=== PATIENT | male | born 1955 | race Caucasian/White ===

== ENCOUNTER 2016-07-24 23:22 | Emergency (ER) | payer MEDICARE ==
--- NOTE | 2016-07-25 01:18 | ED ---
Head Injury - HPI Summary HPI Summary: 61M w/ PMh of CVA presents with head injury, forehead laceration, and left hand injury s/p falling. He is not suppose to walk much because he is unsteady on his feet. He states he got caught on a rug and feel onto his left hand and forehead. He denies any LOC or vomiting. He is not sure if he is on blood thinners. He denies any headache currently. 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 He denies any chest pain or SOB with fall. His tetanus is up to date. - History Of Current Complaint Chief Complaint: EDLacSutureRecheck Stated Complaint: HEAD LACERATION Time Seen by Provider: 07/25/16 00:18 Pain Intensity: 0 - Allergies/Home Medications Allergies/Adverse Reactions: Allergies Allergy/AdvReac Type Severity Reaction Status Date / Time Sulfa Antibiotics AdvReac Mild Rash Verified 07/24/16 23:27 PMH/Surg Hx/FS Hx/Imm Hx Endocrine/Hematology History: Denies: Hx Anticoagulant Therapy, Hx Diabetes Cardiovascular History: Reports: Hx Coronary Artery Disease - ON MED, Hx Hypertension - CONTROLLED W/ MEDICATION, Other Cardiovascular Problems/ Disorders - CABG 2008, [employer] DR. STOKES Denies: Hx Pacemaker/ICD GI History: Reports: Hx Gastroesophageal Reflux Disease - ON MED History: Reports: Hx Kidney Stones Denies: Hx Renal Disease Musculoskeletal History: Denies: Hx Rheumatoid Arthritis, Hx Osteoporosis Sensory History: Reports: Hx Contacts or Glasses - GLASSES Denies: Hx Hearing Aid Opthamlomology History: Reports: Hx Contacts or Glasses - GLASSES Psychiatric History: Denies: Hx Panic Disorder - Surgical History Surgery Procedure, Year, and Place: 2008-CABG; Lt [facility] - 2000; LITHOTRIPSY - 2006; HAND - TENDON REPAIRED -02/22/12 Hx Anesthesia Reactions: No - Immunization History Date of Tetanus Vaccine: 2014 Infectious Disease History: No Infectious Disease History: Denies: Hx Clostridium Difficile, Hx Hepatitis, Hx Human Immunodeficiency Virus (HIV), Hx of Known/Suspected MRSA, Hx Shingles, Hx Tuberculosis, Hx Known/ Suspected VRE, Hx Known/Suspected VRSA, History Other Infectious Disease, Traveled Outside the [place] in Last 30 Days - Family History Known Family History: Positive: Cardiac Disease - Social History Alcohol Use: None Substance Use Type: Reports: None Smoking Status (MU): Never Smoked Tobacco Review of Systems Negative: Fever Negative: Chest Pain Negative: Shortness Of Breath Negative: Vomiting Positive: Myalgia - left hand pain Positive: Other - forehead laceration Negative: Headache All Other Systems Reviewed And Are Negative: Yes Physical Exam Triage Information Reviewed: Yes Vital Signs On Initial Exam: Initial Vitals Temp Pulse Resp BP Pulse Ox 98.8 F 79 18 194/74 98 07/24/16 23:24 07/24/16 23:24 07/24/16 23:24 07/24/16 23:24 07/24/16 23:24 Vital Signs Reviewed: Yes Appearance: Positive: Well-Appearing Skin: Positive: Warm, Dry, Other - 5 cm length and 1 cm width of forhead laceration near right eyebrow, bruising present on right cheek and abrasion noted to left knuckle of middle finger Head/Face: Positive: Normal Head/Face Inspection, Other - no step off, racoon eyes, leonard sign Eyes: Positive: Normal, EOMI, YASEMIN, Conjunctiva Clear ENT: Positive: Normal ENT inspection, Pharynx normal, TMs normal Neck: Positive: Supple, Nontender Respiratory/Lung Sounds: Positive: Clear to Auscultation, Breath Sounds Present Cardiovascular: Positive: Normal, RRR Abdomen Description: Positive: Nontender, Soft Musculoskeletal: Positive: Strength/ROM Intact - of upper and lower extremities and nontender, Limited @ - left hand which is baseline, Other - good pulses, nontender extremities Neurological: Positive: Sensory/Motor Intact, Alert, Oriented to Person Place, Time, CN Intact II-III - has loss of some peripheral vision which is baseline - [place] Coma Scale Best Eye Response: 4 - Spontaneous Best Motor Response: 6 - Obeys Commands Best Verbal Response: 5 - Oriented Coma Scale Total: 15 Procedures - Laceration/Wound Repair 1 Location: head Description: Linear Anesthesia: Local, 1.0%, Epi Length, Depth and Shape: 5 cm length by 1 cm width Betadine Prep?: No Irrigated w/ Saline (ccs): 100 Laceration/Wound Explored: clean Closure: Multilayer Suture Type: Prolene - 6-0, Chromic - 6-0 Number of Sutures: 8 Layer Closure?: Yes - 7 superficial and one deep Diagnostics - Vital Signs Vital Signs Temp Pulse Resp BP Pulse Ox 07/25/16 00:17 78 94 07/25/16 00:16 142/77 07/24/16 23:24 98.8 F 79 18 194/74 98 - Laboratory Lab Statement: Any lab studies that have been ordered have been reviewed, and results considered in the medical decision making process. - Radiology hand Xray Interpretation: No Acute Changes Radiology Interpretation Completed By: ED Physician - CT head CT Interpretation: No Acute Changes - no hemmorrhage, mass, old right occipital and fontoparietal infarct CT Interpretation Completed By: Radiologist facial CT Interpretation: No Acute Changes CT Interpretation Completed By: Radiologist Head Injury Course/Dx Course Of Treatment: 61M presents with right forehead laceration and head injury s/p falling. mechanical fall. normal neuro exam at his baseline due to previous CVA. CT head and face normal. xray hand normal, has abrasion present there that cleaned, laceration went through muscle at one part so placed one deep absorbable sutures and 7 superficial that told to need to remove in 5 days , patient understands and agrees with plan - Diagnoses Differential Diagnosis/HQI/PQRI: Contusion, Intracranial Bleed, Laceration, Orbital Fracture Provider Diagnoses: Laceration of forehead, Head injury, Injury of left hand Discharge - Discharge Plan Condition: Good Disposition: HOME Patient Education Materials: Care For Your Stitches (ED) Referrals: Yolanda Bai MD [Primary Care Provider] - Additional Instructions: Keep area clean and dry for 48 hours Take Tylenol for pain every 6 hours as needed Return to ED or primary for suture removal in 5 days Return to ED if develop signs of infection such as fever, spreading redness, or pus formation, worsening headache, or any new or worsening symptoms Images - Images Head: 1 - forehead laceration
[2016-07-25 02:14] VITALS: BP 142/72
--- NOTE | 2016-07-25 07:46 | RAD ---
INDICATION: Head injury. COMPARISON: Comparison is made with a prior CT of the brain from November 21, 2012. TECHNIQUE: Contiguous axial sections of the brain were obtained from the skull base to the vertex without contrast. FINDINGS: The ventricles, cisterns and sulci are enlarged consistent with diffuse atrophy which is out of proportion to the patient's age although appears similar to the prior study. There are small a moderate size areas of encephalomalacia present in the right frontal and occipital lobes consistent with old infarcts which appear unchanged. No other focal abnormality or mass effect is seen. There is no evidence for hemorrhage. There is focal soft tissue swelling and air in the scalp adjacent to the right frontal bone consistent with a laceration contusion injury. No fracture is seen. The visualized portion of the paranasal sinuses and mastoid air cells appear clear with the exception of a small 7 mm mucous retention cyst or polyp within the right maxillary sinus. IMPRESSION: 1. NO EVIDENCE FOR ACUTE INTRACRANIAL ABNORMALITY. 2. SCALP LACERATION INJURY ANTERIOR TO THE RIGHT FRONTAL BONE. 3. ATROPHY. 4. OLD INFARCTS.
--- NOTE | 2016-07-25 07:50 | RAD ---
INDICATION: Left hand injury. TECHNIQUE: 2 views of the left hand were obtained. FINDINGS: There is deformity of the hand. There is focal soft tissue swelling dorsal to the metacarpal bones. No fracture is seen. Joint spaces appear maintained. IMPRESSION: SOFT TISSUE SWELLING, NO FRACTURE IS SEEN.
--- NOTE | 2016-07-25 07:56 | RAD ---
INDICATION: Facial trauma. COMPARISON: There are no prior studies available for comparison. TECHNIQUE: Contiguous axial sections of the axial images of the facial bones were obtained and reconstructed in the coronal and sagittal planes. FINDINGS: There is air and focal soft tissue swelling anterior to the right frontal bone. No adjacent fracture is seen. The arora of the orbits and maxillary sinuses appear intact. The zygomatic arches appear intact. There is no evidence for a fracture of the mandible. The nasal bones appear intact. There is moderate deviation of the nasal septum toward the left side. The pterygoid plates appear intact. There is a 7 mm nodule in the posterior aspect of the right maxillary sinus most consistent with a mucous retention cyst or polyp. The paranasal sinuses and mastoid air cells otherwise appear clear. IMPRESSION: SOFT TISSUE LACERATION ANTERIOR TO THE RIGHT FRONTAL BONE, NO EVIDENCE FOR FRACTURE OF THE FACIAL BONES.
== END 2016-07-25 02:16 | disposition home or self-care (01) ==
LOC: ED 23:22
DX: S01.81XA Laceration without foreign body of other part of head, initial encounter (principal); S69.92XA Unspecified injury of left wrist, hand and finger(s), initial encounter; M89.8X9 Other specified disorders of bone, unspecified site; M79.642 Pain in left hand; W19.XXXA Unspecified fall, initial encounter; Y93.9 Activity, unspecified; Y92.9 Unspecified place or not applicable
CPT/HCPCS: 12013; 70450; 70486; 99283

== ENCOUNTER 2016-08-10 14:33 | Emergency (ER) | payer MEDICARE ==
[2016-08-10 14:55] VITALS: BP 137/75
--- NOTE | 2016-08-10 15:24 | UC ---
HPI Wound/Suture Re-check - HPI Summary HPI Summary: SEVEN SUTURES PLACED ON 08/05/16 IN [facility] ED, FELL ON HEAD. NO COMPLICATIONS WITH HEAD TRAUMA OR LACERATION. - History Of Current Complaint Chief Complaint: UCSkin Stated Complaint: STITCHES REMOVAL Time Seen by Provider: 08/10/16 15:05 Hx Obtained From: Patient Onset/Duration: Sudden Onset Pain Intensity: 0 Pain Scale Used: 0-10 Numeric - Allergies/Home Medications Allergies/Adverse Reactions: Allergies Allergy/AdvReac Type Severity Reaction Status Date / Time Sulfa Antibiotics AdvReac Mild Rash Verified 08/10/16 14:55 PMH/Surg Hx/FS Hx/Imm Hx Previously Healthy: Yes Endocrine History Of: Denies: Diabetes, Thyroid Disease Cardiovascular History Of: Reports: Cardiac Disorders - cabbage, Hypertension - CONTROLLED W/ MEDICATION Denies: Pacemaker/ICD Respiratory History Of: Denies: COPD, Asthma GI/ History Of: Reports: Kidney Stones Denies: Ulcer, Renal Disease Neurological History Of: Reports: CVA - 3 YEARS AGO Other History Of: Negative For: Anticoagulant Therapy - Surgical History Surgical History: Yes Surgery Procedure, Year, and Place: 2009-CABG; Lt [facility] - 2000; LITHOTRIPSY - 2006; HAND - TENDON REPAIRED -02/22/12 - Family History Known Family History: Positive: Cardiac Disease - Social History Occupation: Disabled Lives: With Family Alcohol Use: None Substance Use Type: None Smoking Status (MU): Never Smoked Tobacco - Immunization History Most Recent Influenza Vaccination: fall 2105 Most Recent Tetanus Shot: UPDATED 04/27/15 Most Recent Pneumonia Vaccination: denies Review of Systems Constitutional: Negative Skin: Negative Eyes: Negative ENT: Negative Respiratory: Negative Cardiovascular: Negative Gastrointestinal: Negative Genitourinary: Negative Motor: Negative Neurovascular: Negative Musculoskeletal: Negative Neurological: Negative Psychological: Negative All Other Systems Reviewed And Are Negative: Yes Physical Exam Triage Information Reviewed: Yes Appearance: Well-Appearing, No Pain Distress, Well-Nourished Vital Signs: Initial Vital Signs Temp 98.8 F 08/10/16 14:49 Pulse 64 08/10/16 14:49 Resp 18 08/10/16 14:49 BP 137/75 08/10/16 14:49 Pulse Ox 98 08/10/16 14:49 Vital Signs Reviewed: Yes Eye Exam: Normal ENT Exam: Normal ENT: Positive: Normal ENT inspection, Hearing grossly normal, Pharynx normal, TMs normal Dental Exam: Normal Neck exam: Normal Neck: Positive: Supple, Nontender, No Lymphadenopathy Respiratory Exam: Normal Respiratory: Positive: Chest non-tender, Lungs clear, Normal breath sounds, No respiratory distress, No accessory muscle use Cardiovascular Exam: Normal Cardiovascular: Positive: RRR, No Murmur, Pulses Normal, Brisk Capillary Refill Abdominal Exam: Normal Abdomen Description: Positive: Nontender, No Organomegaly Musculoskeletal: Positive: Strength Limited @ - LEFT SIDE LIMITIATIONS = NORMAL FOR PATIENT, ROM Limited @ - LEFT SIDE LIMITIATIONS = NORMAL FOR PATIENT Neurological Exam: Normal - LEFT SIDE LIMITIATIONS = NORMAL FOR PATIENT Psychological Exam: Normal Psychological: Positive: Normal Response To Family Skin Exam: Other - HEALING WOUND RIGHT FOREHEAD; SEVEN SUTURES REMOVED Course/Dx - Differential Dx - Laceration/Wound Differential Diagnoses: Healing Wound, Suture Removal Provider Diagnoses: HEALING WOUND (#7) SUTURES REMOVED Discharge - Discharge Plan Condition: Stable Disposition: HOME Patient Education Materials: Stitches Removal (ED) Referrals: Yolanda Bai MD [Primary Care Provider] -
== END 2016-08-10 15:18 | disposition home or self-care (01) ==
LOC: UCEAST 14:33
DX: Z48.02 Encounter for removal of sutures (principal); I10 Essential (primary) hypertension; Z88.2 Allergy status to sulfonamides; Z87.442 Personal history of urinary calculi; Z86.73 Personal history of transient ischemic attack (TIA), and cerebral infarction without residual deficits
CPT/HCPCS: 99211; G0463

== ENCOUNTER 2017-03-12 12:38 | Day surgery (SDC) | payer MEDICARE ==
[~2017-03-12 12:38] MED LIST: Buffered Lidocaine 0.9% SYRIN* 5 ML/SYR SYRINGE INTRADERM ONE; Sodium Citrate/Citric Acid* 15 ML UDC PO ONE
[2017-03-12] MEDS ORDERED: Sodium Citrate/Citric Acid* 15 ML UDC ONE (12:51)
[2017-03-12] MEDS ORDERED: ceFAZolin 2 GM PREMIX (*) 2 GM/50 ML BAG IVPB ONE (12:51)
[2017-03-12] MEDS ORDERED: Buffered Lidocaine 0.9% SYRIN* 5 ML/SYR SYRINGE ONE (12:51)
[2017-03-12 13:17] LABS: Hematocrit 46 % (42-52); Hemoglobin 16.1 g/dl (14.0-18.0); Mean Corpuscular HGB Conc 35 g/dl (31-36); Mean Corpuscular Hemoglobin 32 pg (27-31); Mean Corpuscular Volume 92 fL (80-94); Mean Platelet Volume 8 um3 (7.4-10.4); Red Blood Count 4.96 10^6/ul (4.0-5.4); Red Cell Distribution Width 13 % (10.5-15); White Blood Count 7.3 10^3/ul (3.5-10.8)
[2017-03-12] MEDS ORDERED: Lidocaine 2% PF* 10 ML AMP ONE ×2 (14:47→15:19)
[2017-03-12] MEDS ORDERED: fentaNYL* 50 MCG/ML 2 ML VIAL (100 MCG VIAL) ONE (14:59)
[2017-03-12] MEDS ORDERED: Midazolam* 1 MG/ML 5 ML VIAL (5 MG) ONE (15:00)
[2017-03-12] MEDS ORDERED: Propofol* 10 MG/ML 20 ML BTL IV PUSH ONE (15:48)
[2017-03-12 16:46] VITALS: BP 133/81
--- NOTE | 2017-03-13 13:23 | OP ---
OPERATIVE REPORT: DATE OF OPERATION: 03/12/17 - SDS DATE OF : 51 ATTENDING SURGEON: Imer Vann MD BREAKDOWN PERSON: Smiley Ren PA-C. ANESTHESIOLOGIST: Kayden Long DO ANESTHESIA: MAC. 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 OPERATIVE PROCEDURE: Left 1st metatarsophalangeal joint fusion and proximal interphalangeal resection arthroplasty. DESCRIPTION OF PROCEDURE: The patient was taken to the operating room where a longitudinal incision was made over the 1st MTP joint. The cartilage of the MTP joint was removed with a small power bur and then we pinned the joint in neutral position using an oblique 32 mm threaded cannulated screw. Dorsally, we fixed the fusion with a neutralization plate. This was a rigid wide plate of the with a combination of locking and nonlocking screws. X-ray intraoperatively showed satisfactory compression and alignment of the 1st MTP joint. Then, we made a transverse elliptical incision at the PIP joint removing the extensor tendon and the collateral ligaments. We removed the bone surfaces from the PIP joint and then pinned in a neutral position with a longitudinal 0.062 C wire. We closed dorsally the interrupted nylon sutures. The wound over the 1st MTP joint was closed with 3-0 Vicryl and 3-0 nylon and a compression dressing applied. [id number] #: [id number] MTDD
== END 2017-03-12 17:00 | disposition home or self-care (01) ==
LOC: OR 12:38
PROVIDERS: ATTEND Orthopaedic Surgery
DX: M20.12 Hallux valgus (acquired), left foot (principal); M20.42 Other hammer toe(s) (acquired), left foot; Z86.73 Personal history of transient ischemic attack (TIA), and cerebral infarction without residual deficits; I69.354 Hemiplegia and hemiparesis following cerebral infarction affecting left non-dominant side; I25.10 Atherosclerotic heart disease of native coronary artery without angina pectoris; Z95.1 Presence of aortocoronary bypass graft; E78.00 Pure hypercholesterolemia, unspecified
CPT/HCPCS: 36415; 85025; A9270-GY; C1713; C1776; J0690; J2001; J2250; J2704; J3010

== ENCOUNTER 2017-03-13 01:07 | Emergency (ER) | payer MEDICARE ==
[2017-03-13] MEDS ORDERED: HYDROmorphone INJ* 2 MG/ML CARPUJECT SYRINGE IM ONE (02:12)
[2017-03-13] MEDS ORDERED: HYDROmorphone INJ* 2 MG/ML CARPUJECT SYRINGE ONE (02:19)
--- NOTE | 2017-03-13 02:55 | ED ---
Michael Tafoya Thomas, scribed for Zuhair Trujillo on 03/13/17 at 0149 . Lower Extremity - HPI Summary HPI Summary: The pt is a 61 y/o M presenting to the ED c/o left foot pain that began yesterday at 23:00 s/p a surgery that was performed yesterday at 14:30. The surgery was performed by Dr. Vann at [facility] [place]. The pain is constant. The pain is rated 6/10. The pain is aggravated by touch and is alleviated by nothing. 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 The patient denies SOB and CP. The patient is accompanied by his . - History of Current Complaint Chief Complaint: EDExtremityLower Stated Complaint: POST SURG L FOOT PAIN Time Seen by Provider: 03/13/17 01:18 Hx Obtained From: Patient, Family/Supplier Specialist - is present Mechanism Of Injury: Other - Surgery yesterday Severity Currently: Moderate Pain Intensity: 6 Pain Scale Used: 0-10 Numeric Timing: Constant Location: Is Discrete @ - L foot Associated Signs And Symptoms: Negative: Other - NEGATIVE: CP, SOB Aggravating Factor(s): Other - Touch Alleviating Factor(s): Nothing - Allergies/Home Medications Allergies/Adverse Reactions: Allergies Allergy/AdvReac Type Severity Reaction Status Date / Time No Known Allergies Allergy Verified 03/12/17 13:01 PMH/Surg Hx/FS Hx/Imm Hx Previously Healthy: No Endocrine/Hematology History: Denies: Hx Anticoagulant Therapy, Hx Diabetes, Hx Thyroid Disease Cardiovascular History: Reports: Hx Coronary Artery Disease - s/p CABG 2008, Hx Hypertension - CONTROLLED W/ MEDICATION, Other Cardiovascular Problems/ Disorders - CABG 2008, ANIMATED [employer] DR. STOKES Denies: Hx Pacemaker/ICD Respiratory History: Denies: Hx Asthma, Hx Chronic Obstructive Pulmonary Disease (COPD) GI History: Reports: Hx Gastroesophageal Reflux Disease - hx of resolved with weight loss and exercise Denies: Hx Ulcer History: Reports: Hx Kidney Stones - in the past x4, last time 3 years ago, Other Problems/Disorders - enlarged prostate-on meds Denies: Hx Renal Disease Musculoskeletal History: Denies: Hx Rheumatoid Arthritis, Hx Osteoporosis Sensory History: Reports: Hx Cataracts - small, Hx Contacts or Glasses - GLASSES distance Denies: Hx Hearing Aid Opthamlomology History: Reports: Hx Cataracts - small, Hx Contacts or Glasses - GLASSES distance Psychiatric History: Denies: Hx Panic Disorder - Cancer History Hx Chemotherapy: No - Surgical History Surgery Procedure, Year, and Place: 2009-CABG; Lt [facility] - 2000; LITHOTRIPSY - 2006; HAND - TENDON REPAIRED -02/22/12. Left foot surgery 03/13/17 Hx Anesthesia Reactions: No - Immunization History Date of Tetanus Vaccine: 2014 Infectious Disease History: Yes Infectious Disease History: Denies: Hx Clostridium Difficile, Hx Hepatitis, Hx Human Immunodeficiency Virus (HIV), Hx of Known/Suspected MRSA, Hx Shingles, Hx Tuberculosis, Hx Known/ Suspected VRE, Hx Known/Suspected VRSA, History Other Infectious Disease, Traveled Outside the [place] in Last 30 Days - Family History Known Family History: Positive: Cardiac Disease - Social History Alcohol Use: None Hx Substance Use: No Substance Use Type: Reports: None Hx Tobacco Use: No Smoking Status (MU): Never Smoked Tobacco Review of Systems Negative: Fever Negative: Chest Pain Negative: Shortness Of Breath Positive: Other - Left foot pain All Other Systems Reviewed And Are Negative: Yes Physical Exam - Summary Physical Exam Summary: Appearance: Well appearing, no pain distress Skin: warm, dry, reflects adequate perfusion Head/face: normal Eyes: EOMI, YASEMIN ENT: normal Neck: supple, nontender Respiratory: CTA, breath sounds present Cardiovascular: RRR, pulses symmetrical Abdomen: nontender, soft Bowel: present Musculoskeletal: normal, strength/ROM intact Neuro: normal, sensory motor intact, A&Ox3 Extremites: There is a dressing applied to the left foot. When I remove the dressing, there is no active bleeding or discoloration of the foot. Pins are present and there are postoperative changes. Neurovascular is intact. Triage Information Reviewed: Yes Vital Signs On Initial Exam: Initial Vitals Temp Pulse Resp BP Pulse Ox 98.0 F 65 16 137/77 96 03/13/17 01:15 03/13/17 01:15 03/13/17 01:15 03/13/17 01:15 03/13/17 01:15 Vital Signs Reviewed: Yes - [place] Coma Scale Coma Scale Total: 15 Diagnostics - Vital Signs Vital Signs Temp Pulse Resp BP Pulse Ox 03/13/17 01:15 98.0 F 65 16 137/77 96 - Laboratory Lab Statement: Any lab studies that have been ordered have been reviewed, and results considered in the medical decision making process. Lower Extremity Course/Dx - Course Assessment/Plan: The pt is a 61 y/o M c/o left foot pain that began yesterday s/ p a surgery that was performed yesterday by Dr. Vann. I spoke with Dr. Reyes, who advises I remove the dressing on the left foot. When I remove the dressing, there is no active bleeding or discoloration of the foot. Pins are present and there are postoperative changes. Neurovascular is intact. We re-wrapped the foot and will give the patient Dilaudid. He will be discharged once his pain is under control. - Diagnoses Provider Diagnoses: Postoperative pain, Status post foot surgery - Physician Notifications Discussed Care Of Patient With: Laura Reyes Time Discussed With Above Provider: 01:40 Instructed by Provider To: Other - I spoke with Dr. Reyes, who advises that I remove the dressing and inspect the foot. If there are no concerning findings, she recommends I re-wrap the foot, give the patient Dilaudid, and discharge him once his pain is under control. Discharge - Discharge Plan Condition: Stable Disposition: HOME Patient Education Materials: Pain Management After Surgery (GEN) Referrals: Yolanda Bai MD [Primary Care Provider] - 3 Days Additional Instructions: Follow up with your primary care provider in three days. Return to the emergency room for any new or worsening symptoms. The documentation as recorded by the Michael nunez Thomas accurately reflects the service I personally performed and the decisions made by me, Zuhair Trujillo.
[2017-03-13 03:05] VITALS: BP 141/75
== END 2017-03-13 03:04 | disposition home or self-care (01) ==
LOC: ED 01:07
DX: G89.18 Other acute postprocedural pain (principal); M79.672 Pain in left foot
CPT/HCPCS: 96372; 99282; J1170

== ENCOUNTER 2017-05-30 23:55 | Emergency (ER) | payer MEDICARE ==
--- OUTSIDE RECORDS SUMMARY | 2017-05-31 00:16 | XMS REPORT ---
:1955 External Reference #:[id number] Author Organization [facility] Address [address] [address] Phone [phone] Care Team Providers Name Role Phone Yolanda Bai MD Primary Care Physician Unavailable Payers Type Date Identification Numbers Payment Provider Subscriber Health Maintenance Effective: Policy Number: Medicare Blue Zachary Patel (O) 06/21/2012 [id number] o Group Number: [id number] [address] [address] PayID: [id number] [place] [address] Medigap Part B Expires: 05/20/2014 Policy Number: [id number] Medicare Zachary Snow PayID: [id number] [address] [place] [address] Problems Date Description Provider Status Onset: 03/17/2013 Mixed hyperlipidemia Simin Majano M.D. Active Onset: 03/17/2013 Arteriosclerosis of autologous vein Simin Majano M.D. Active coronary artery bypass graft Onset: 03/17/2013 Benign essential hypertension Simin Majano M.D. Active Onset: 03/17/2013 Obesity Smiin Majano M.D. Active Onset: 03/18/2014 History of fall Simin Majano M.D. Active Onset: 04/13/2014 Ischemic stroke Apurva Caballero M.D. Active Note: In setting of cardiac catheterization in 2008 Onset: 04/13/2014 Spastic gait Apurva Caballero M.D. Active Onset: 04/13/2014 Abnormal vision Apurva Caballero M.D. Active Note: secondary to [employer] ischemia Onset: 02/24/2015 Arteriosclerosis of coronary artery Simin Majano M.D. Active bypass graft Onset: 02/24/2015 Hyperlipidemia Simin Majano M.D. Active Onset: 02/24/2015 Essential hypertension Simin Majano M.D. 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 hours as needed with food Oxycodone HCL Active Tablets 5mg 30tabs 1-2 tabs M20.12 Imer French by ernesto Vann, every 4-6 M.D. hours as needed Lisinopril Active Tablets 10mg 30tabs 1 by mouth Simin 017 every day Alejandro Majano Left Afo Active I69.998 Apurva Brace For 015 Cowdery, Foot Drop M.D. Tizanidine Active Capsules 4mg 60caps take 1 Apurva HCL 015 capsule by Ada mouth two M.D. times daily Orthotic For Active Please I69.998 Apurva Left Foot 014 make Cowdery, Drop After orthotic M.D. Stroke for foot drop. Patient had had falls in setting of foot drop and vision loss. Crestor Active Tablets 20mg 90tabs 1 by mouth Simin 012 every day Alejandro Majano Multivital Active Tablets once daily Unknown 000 Fish Oil Active Capsules 1000mg 1 po qd Unknown 000 Bupropion HCL Active Tablets ER 300mg 1 po qd Unknown XL 000 24HR Metoprolol Active Tablets 25mg 1 po qam 1 Unknown Tartrate 000 po qpm Vitamin D Active 2 tab po Unknown 000 daily Coq-10 Active Capsules 10mg 2 times a Unknown 000 week Magnesium Active Capsules 400mg 1 by mouth Unknown 000 every day Aspirin Active Tablets 325mg take 1 by Unknown 000 mouth once a day Dutasteride-T Active Capsules 0.5-0.4mg 1 daily Juanita, amsulosin HCL 000 MD Stevie Topamax Hx Tablets 25mg 120tab 1 po qhs I69.998 Endy [place] 015 - s for 1 wk Gagan then 2 qhs M.DArmand 017 for 1 wk then 3 qhs for 1 wk then 4 qhs Lisinopril Hx Tablets 5mg 60tabs 2 by mouth Simin 012 - every day Armstrong, M.D. 017 Tizanidine Hx Capsules 2mg 120cap 2 capsules Apurva HCL 012 - s twice a Cowdery, day M.D. 015 Metoprolol Hx Unknown 000 - 013 Wellbutrin Hx Unknown 000 - 013 Omeprazole Hx Capsules 20mg 1 po qd Unknown 000 - DR 016 Vitamin E Hx Capsules 1 po qd Unknown 000 - 017 Vitamin C Hx Capsules 1000 1 po qd Unknown 000 - 017 Aspirin Hx Tablets 81mg 1 po qd Unknown 000 - 017 Medications Administered in Office Medication Date Status Form Strength Qnty SIG Indications Ordering Provider Inj, Administered Injection Simin Regadenoson, 013 Armstrong, 0.1 MG M.D. Technetium TC Administered Injection Simin 99M 013 Melecio, Tetrofosmin, M.D. Per Unit Dose Up To 40 Millicuries Vital Signs Date Vital Result Comment 05/24/2017 Height 71.5 inches 5'11.50" Weight 206.00 lb BP Systolic 128 mmHg BP Diastolic 74 mmHg Respiratory Rate 14 /min Pain Level 2 BMI (Body Mass Index) 28.3 kg/m2 04/26/2017 Height 71.5 inches 5'11.50" Weight 206.00 lb Respiratory Rate 14 /min Pain Level 2 BMI (Body Mass Index) 28.3 kg/m2 04/04/2017 Height 71.5 inches 5'11.50" Weight 206.00 lb Heart Rate 56 /min BP Systolic 118 mmHg BP Diastolic 72 mmHg Body Temperature 95.5 F Pain Level 2 BMI (Body Mass Index) 28.3 kg/m2 03/27/2017 Height 71.5 inches 5'11.50" Weight 206.00 lb with shoes Heart Rate 60 /min BP Systolic Sitting 124 mmHg Rue reg cuff BP Diastolic Sitting 80 mmHg Rue reg cuff BP Systolic Standing 140 mmHg Rue reg cuff BP Diastolic Standing 90 mmHg Rue reg cuff Respiratory Rate 16 /min BMI (Body Mass Index) 28.3 kg/m2 Ejection Fraction 50-55% 02/26/2013-echo 03/23/2017 Height 71.5 inches 5'11.50" Weight 205.00 lb BP Systolic 110 mmHg BP Diastolic 60 mmHg Respiratory Rate 14 /min Body Temperature 98.6 F Pain Level 3 BMI (Body Mass Index) 28.2 kg/m2 03/08/2017 Height 71.5 inches 5'11.50" Weight 205.00 lb Heart Rate 60 /min BP Systolic 105 mmHg BP Diastolic 80 mmHg Body Temperature 97.8 F Pain Level 6 BMI (Body Mass Index) 28.2 kg/m2 10/25/2016 Height 71.5 inches 5'11.50" Weight 202.00 lb Heart Rate 68 /min BP Systolic Sitting 110 mmHg BP Diastolic Sitting 70 mmHg Respiratory Rate 14 /min BMI (Body Mass Index) 27.8 kg/m2 03/17/2016 Height 71.5 inches 5'11.50" Weight 201.00 lb with shoes Heart Rate 64 /min BP Systolic Sitting 132 mmHg R arm reg cuff BP Diastolic Sitting 70 mmHg R arm reg cuff BP Systolic Standing 140 mmHg BP Diastolic Standing 74 mmHg Respiratory Rate 18 /min BMI (Body Mass Index) 27.6 kg/m2 Ejection Fraction 50-55% 03/0209/10/2015 Height 71.5 inches 5'11.50" Weight 204.00 lb with shoes Heart Rate 62 /min BP Systolic Sitting 134 mmHg LA lrg cuff BP Diastolic Sitting 76 mmHg LA lrg cuff BP Systolic Standing 136 mmHg LA lrg cuff BP Diastolic Standing 78 mmHg LA lrg cuff Respiratory Rate 15 /min BMI (Body Mass Index) 28.1 kg/m2 Ejection Fraction 50-55% 02/26/13 04/26/2015 Height 71.5 inches 5'11.50" Weight 201.00 lb Heart Rate 60 /min BP Systolic Sitting 136 mmHg BP Diastolic Sitting 74 mmHg Respiratory Rate 16 /min BMI (Body Mass Index) 27.6 kg/m2 02/24/2015 Height 71.5 inches 5'11.50" Weight 201.56 lb with shoes Heart Rate 60 /min BP Systolic Sitting 138 mmHg Ra reg cuff BP Diastolic Sitting 90 mmHg Ra reg cuff BP Systolic Standing 132 mmHg Ra reg cuff BP Diastolic Standing 90 mmHg Ra reg cuff Respiratory Rate 16 /min BMI (Body Mass Index) 27.7 kg/m2 Ejection Fraction 50-55% date 02/26/13 ECHO 09/14/2014 Height 71.5 inches 5'11.50" Weight 209.00 lb Heart Rate 56 /min BP Systolic Sitting 134 mmHg BP Diastolic Sitting 82 mmHg Respiratory Rate 16 /min BMI (Body Mass Index) 28.7 kg/m2 06/24/2014 Height 71.5 inches 5'11.50" Weight 202.00 lb Heart Rate 58 /min BP Systolic 134 mmHg BP Diastolic 71 mmHg BMI (Body Mass Index) 27.8 kg/m2 04/13/2014 Height 71.5 inches 5'11.50" Weight 207.25 lb Heart Rate 68 /min BP Systolic Sitting 122 mmHg BP Diastolic Sitting 66 mmHg Respiratory Rate 16 /min BMI (Body Mass Index) 28.5 kg/m2 03/18/2014 Height 71.5 inches 5'11.50" Weight 206.00 lb with shoes Heart Rate 62 /min BP Systolic Sitting 136 mmHg LA, reg cuff BP Diastolic Sitting 94 mmHg LA, reg cuff BP Systolic Standing 136 mmHg LA BP Diastolic Standing 90 mmHg LA Respiratory Rate 16 /min BMI (Body Mass Index) 28.3 kg/m2 12/01/2013 Height 71.5 inches 5'11.50" Weight 200.00 lb Heart Rate 60 /min BP Systolic Sitting 120 mmHg BP Diastolic Sitting 76 mmHg Respiratory Rate 16 /min BMI (Body Mass Index) 27.5 kg/m2 06/04/2013 Heart Rate 60 /min BP Systolic Sitting 128 mmHg BP Diastolic Sitting 80 mmHg Respiratory Rate 16 /min 03/17/2013 Height 71.5 inches 5'11.50" Weight 207.00 lb down 7 lbs Heart Rate 86 /min BP Systolic Sitting 130 mmHg Ra reg cuff BP Diastolic Sitting 82 mmHg Ra reg cuff BP Systolic Standing 118 mmHg Ra BP Diastolic Standing 80 mmHg Ra Respiratory Rate 16 /min BMI (Body Mass Index) 28.5 kg/m2 11/18/2012 Height 72 inches 6'0" Weight 204.00 lb Heart Rate 60 /min BP Systolic 120 mmHg BP Diastolic 78 mmHg Respiratory Rate 10 /min BMI (Body Mass Index) 27.7 kg/m2 07/18/2012 Heart Rate 69 /min BP Systolic 118 mmHg BP Diastolic 80 mmHg Respiratory Rate 16 /min Results Test Date Test Result H/L Range Note CBC Auto Diff 03/12/2017 White Blood Count 7.3 10^3/uL 3.5-10.8 Red Blood Count 4.96 10^6/uL 4.0-5.4 Hemoglobin 16.1 g/dL 14.0-18.0 Hematocrit 46 % 42-52 Mean Corpuscular Volume 92 fL 80-94 Mean Corpuscular Hemoglobin 32 pg High 27-31 Mean Corpuscular HGB Conc 35 g/dL 31-36 Red Cell Distribution Width 13 % 10.5-15 Platelet Count 177 10^3/uL 150-450 Mean Platelet Volume 8 um3 7.4-10.4 Abs Neutrophils 5.1 10^3/uL 1.5-7.7 Abs Lymphocytes 1.3 10^3/uL 1.0-4.8 Abs Monocytes 0.6 10^3/uL 0-0.8 Abs Eosinophils 0.2 10^3/uL 0-0.6 Abs Basophils 0 10^3/uL 0-0.2 Abs Nucleated RBC 0 10^3/uL Granulocyte % 70.9 % 38-83 Lymphocyte % 17.5 % Low 25-47 Monocyte % 7.7 % 1-9 Eosinophil % 3.3 % 0-6 Basophil % 0.6 % 0-2 Nucleated Red Blood Cells % 0 Basic Metabolic Panel 05/27/2014 Sodium 139 mmol/L 133-145 Potassium 4.5 mmol/L 3.5-5.0 Chloride 105 mmol/L 101-111 Co2 Carbon Dioxide 30 mmol/L 22-32 Anion Gap 4 mmol/L 2-11 Glucose 89 mg/dL 70-100 Blood Urea Nitrogen 19 mg/dL 6-24 Creatinine 1.25 mg/dL High 0.67-1.17 BUN/Creatinine Ratio 15.2 8-20 Calcium 9.2 mg/dL 8.6-10.3 Egfr Non- 58.7 >60 Egfr 75.5 >60 1 CBC No Diff 05/27/2014 White Blood Count 7.1 10^3/uL 4.8-10.8 Red Blood Count 5.01 10^6/uL 4.0-5.4 Hemoglobin 15.9 g/dL 14.0-18.0 Hematocrit 47 % 42-52 Mean Corpuscular Volume 94 fL 80-94 Mean Corpuscular Hemoglobin 32 pg High 27-31 Mean Corpuscular HGB Conc 34 g/dL 31-36 Red Cell Distribution Width 13 % 10.5-15 Platelet Count 180 10^3/uL 150-450 Mean Platelet Volume 9 um3 7.4-10.4 Laboratory test finding 03/17/2014 Creatine Kinase 61 U/L 10-223 Lipid Profile (Trig/Chol/HDL) 03/17/2014 Triglycerides 89 mg/dL 2 Cholesterol 121 mg/dL 3 HDL Cholesterol 46.2 mg/dL 4 LDL Cholesterol 57 mg/dL 5 1 Because ethnic data is not always readily available, this report includes an eGFR for both -Americans and non- Americans. The National Kidney Disease Education Program (NKDEP) does not endorse the use of the MDRD equation for patients that are not between the ages of 18 and 70, are , have extremes of body size, muscle mass, or nutritional status, or are non- or non-. According to the National Kidney Foundation, irrespective of diagnosis, the stage of the disease is based on the level of kidney function: Stage Description GFR(mL/min/1.73 m(2)) 1 Kidney damage with normal or decreased GFR 90 2 Kidney damage with mild decrease in GFR 60-89 3 Moderate decrease in GFR 30-59 4 Severe decrease in GFR 15-29 5 Kidney failure <15 (or dialysis) 2 Desirable <150 Borderline high 150-199 High 200-499 Very High >500 3 Desirable <200 Borderline high 200-239 High >239 4 Low <40 Desirable: 40-60 High: >60 5 Desirable <100 Near Optimal 100-129 Borderline high 130-159 High 160-189 Very High >189 Procedures Date CPT Code Description Status Comment 03/27/2017 65678 EKG Tracing & Completed Interpretation 03/12/2017 68754 Correction Harjinder Completed 03/12/2017 47148 Arthrodesis Great Toe IP JT Completed 03/12/2017 86211 Correction Quiquee Completed 03/17/2016 75343 EKG Tracing & Completed Interpretation 12/16/2015 Diabetic Retinal Eye Exam Completed Document: 12/16/15 - Consult Ophthalmology - Jami 02/24/2015 86716 EKG Tracing & Completed Interpretation 09/28/2014 Diabetic Retinal Eye Exam Completed Document: 09/28/14 - Consult Ophthalmology - Jaim 03/18/2014 88103 EKG Tracing & Completed Interpretation 09/25/2013 Diabetic Retinal Eye Exam Completed Document: 09/25/13 - Consult Ophth-[place] 07/04/2013 Diabetic Retinal Eye Exam Completed Document: 07/04/13 - Consult Ophth-[place] Document: 07/04/13 - Consult Ophth/[place] 04/03/2013 55721 Myocardial Perfusion Imaging Completed Tomographic (Spect) Multiple Studies 04/03/2013 78670 Stress Test Completed 03/17/2013 74207 EKG Tracing & Completed Interpretation 02/26/2013 40863 ECHO Transthoracic, Completed Real-Time 2D With Doppler And Color Flow 03/12/2012 49743 EKG Tracing & Completed Interpretation 12/14/2009 Bone Mineral Density Test Completed Encounters Type Date Location Provider CPT E/M Dx Office Visit 03/27/2017 [facility] Simin Majano M.D. 22104 I25.810 3:00p [facility] I10 E78.2 Office Visit 03/08/2017 11:00a [facility] Imer Vann 26685 M20.12 C.M.Marciano Allen M20.42 Office Visit 10/25/2016 11:00a [facility] Apurva Caballero M.D. 65460 M62.838 Services Of Fabian I69.998 Office Visit 03/17/2016 2:30p [facility] Simin Majano M.D. 84304 I25.810 [place] I10 E78.2 I69.398 K59.00 Office Visit 09/10/2015 10:30a [facility] Of JOSE LUIS Jeronimo 43132WRZ I25.810 [facility] [place] E78.5 I10 Office Visit 04/26/2015 11:45a [facility] Apurva Caballero M.D. 50121 I69.398 Services Of [facility] M62.838 Office Visit 02/24/2015 3:30p [facility] Simin Majano M.D. 13798 I25.810 [place] E78.5 I10 Office Visit 09/14/2014 2:00p [facility] Apurva Caballero M.D. 58313 728.85 Services Of [facility] 438.7 438.89 Office Visit 06/24/2014 10:00a [facility] Kamini Ohara 25718 728.85 Of Linda Allen Office Visit 04/13/2014 11:30a [facility] Apurva Caballero M.D. 95948 728.85 Services Of [facility] 438.7 438.89 Office Visit 03/18/2014 8:30a [facility] Simin Majano M.D. 41929 272.2 [facility] [place] 414.02 V15.88 401.1 Office Visit 12/01/2013 1:00p [facility] Apurva Caballero M.D. 04033 438.7 Services Of [facility] 728.85 Office Visit 06/04/2013 1:00p [facility] Apurva Caballero M.D. 43923 438.7 Services Of [facility] 438.89 728.85 Office Visit 03/17/2013 11:30a [facility] Simin Majano M.D. 75414 272.2 [place] 414.02 401.1 278.00 Office Visit 12/30/2012 2:15p [facility] Imer Vann, 54503 719.47 Linda Allen Office Visit 11/18/2012 11:15a [facility] Apurva Caballero M.D. 73454 438.20 Services Of [facility] 438.7 Office Visit 07/18/2012 11:30a [facility] Apurva Caballero M.D. 32095 438.20 Services Of [facility] 438.7 Office Visit 05/30/2012 11:00a [facility] Apurva Caballero M.D. 20478 438.89 Services Of [facility] 728.85 799.59 Office Visit 04/01/2012 2:00p [facility] Apurva Caballero M.D. 03441 348.1 Services Of [facility] 728.87 723.1 Office Visit 03/12/2012 8:00a [facility] Simin Majano M.D. 40911 414.02 [facility] 401.9 Office Visit 12/24/2009 9:15a [facility] Ti Mancilla, 23984 805.4 Fabian Allen Plan of Care Future Appointment(s):07/03/2017 10:15 am - Imer Vann M.D. at [facility]10/26/2017 10:00 am - Apurva Caballero M.D. at [facility]05/24/2017 - Imer Vann M.D.M20.12 Hallux valgus (acquired), left footNew Xrays:Foot Left 3+ VWSNew Therapy:Rehab ReferralFollow up:4-5 juan
--- NOTE | 2017-05-31 00:55 | ED ---
Head Injury - HPI Summary HPI Summary: Patient presents to the ED with a severe laceration to the left side of the scalp after slipping and falling in the bathroom and hitting his head on the cabinet. Denies LOC. Notes to a slight KNOX over where the laceration lies. Denies other symptoms. Denies visual changes. Denies chest pain, SOB, abdominal pain or other symptoms. Hx of stroke with left sided weakness at baseline. He is alert and oriented and answering questions appropriately. at bedside states he is at his baseline. - History Of Current Complaint Chief Complaint: EDLacSutureRecheck Stated Complaint: FALL, HEAD LAC Time Seen by Provider: 05/31/17 00:05 Hx Obtained From: Patient Mechanism Of Injury: Direct Blow Onset/Duration: Started Hours Ago Onset of Pain: Immediate Severity Currently: Moderate Severity Initially: Moderate Pain Intensity: 0 Pain Scale Used: 0-10 Numeric Location of Head Injury: Frontal Location: Discrete At: - left frontal Character: Sharp - Risk Factors SDH Risk Factor: Male - Allergies/Home Medications Allergies/Adverse Reactions: Allergies Allergy/AdvReac Type Severity Reaction Status Date / Time No Known Allergies Allergy Verified 05/31/17 00:26 PMH/Surg Hx/FS Hx/Imm Hx Previously Healthy: Yes Endocrine/Hematology History: Denies: Hx Anticoagulant Therapy, Hx Diabetes, Hx Thyroid Disease Cardiovascular History: Reports: Hx Coronary Artery Disease - s/p CABG 2008, Hx Hypertension - CONTROLLED W/ MEDICATION, Other Cardiovascular Problems/ Disorders - CABG 2008, 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 Denies: Hx Pacemaker/ICD Respiratory History: Denies: Hx Asthma, Hx Chronic Obstructive Pulmonary Disease (COPD) GI History: Reports: Hx Gastroesophageal Reflux Disease - hx of resolved with weight loss and exercise Denies: Hx Ulcer History: Reports: Hx Kidney Stones - in the past x4, last time 3 years ago, Other Problems/Disorders - enlarged prostate-on meds Denies: Hx Renal Disease Musculoskeletal History: Denies: Hx Rheumatoid Arthritis, Hx Osteoporosis Sensory History: Reports: Hx Cataracts - small, Hx Contacts or Glasses - GLASSES distance Denies: Hx Hearing Aid Opthamlomology History: Reports: Hx Cataracts - small, Hx Contacts or Glasses - GLASSES distance Psychiatric History: Denies: Hx Panic Disorder - Cancer History Hx Chemotherapy: No - Surgical History Surgery Procedure, Year, and Place: 2008-CABG; Lt ACHILLES - 2000; LITHOTRIPSY - 2006; HAND - TENDON REPAIRED -02/22/12. Left foot surgery 03/13/17 Hx Anesthesia Reactions: No - Immunization History Date of Tetanus Vaccine: reports UTD Date of Influenza Vaccine: 01/2017 Immunizations Up to Date: Yes Infectious Disease History: No Infectious Disease History: Denies: Hx Clostridium Difficile, Hx Hepatitis, Hx Human Immunodeficiency Virus (HIV), Hx of Known/Suspected MRSA, Hx Shingles, Hx Tuberculosis, Hx Known/ Suspected VRE, Hx Known/Suspected VRSA, History Other Infectious Disease, Traveled Outside the [place] in Last 30 Days - Family History Known Family History: Positive: Cardiac Disease - Social History Occupation: Employed Full-time Lives: With Family Alcohol Use: None Hx Substance Use: No Substance Use Type: Reports: None Hx Tobacco Use: No Smoking Status (MU): Never Smoked Tobacco Review of Systems Constitutional: Negative Negative: Fever, Chills, Fatigue Eyes: Negative Cardiovascular: Negative Respiratory: Negative Genitourinary: Negative Positive: no symptoms reported, see HPI Musculoskeletal: Negative Skin: Negative Positive: Headache Psychological: Normal All Other Systems Reviewed And Are Negative: Yes Physical Exam Triage Information Reviewed: Yes Vital Signs On Initial Exam: Initial Vitals Temp Pulse Resp BP Pulse Ox 97.9 F 64 16 148/74 99 05/31/17 00:00 05/31/17 00:00 05/31/17 00:00 05/31/17 00:00 05/31/17 00:00 Vital Signs Reviewed: Yes Appearance: Positive: Well-Appearing, Well-Nourished Skin: Positive: Warm, Skin Color Reflects Adequate Perfusion, Other Procedures - Laceration/Wound Repair 1 Location: head Description: Irregular Length, Depth and Shape: 14cm length; irregular Betadine Prep?: No Irrigated w/ Saline (ccs): 20 Laceration/Wound Explored: clean Closure: Luis Carlos #__ - 8 Layer Closure?: No Diagnostics - Vital Signs Vital Signs Temp Pulse Resp BP Pulse Ox 05/31/17 00:00 97.9 F 64 16 148/74 99 - Laboratory Lab Statement: Any lab studies that have been ordered have been reviewed, and results considered in the medical decision making process. Head Injury Course/Dx Course Of Treatment: 14 cm laceration to the left side of the scalp with significant skull visualized. He is sent to CT brain and CT cervical to assess for other injuries. Negative. Appropriated edges well. Placed 8 luis carlos. patient tolerated well. He will have luis carlos removed in 10 days and will follow up with his PCP. He is given antibiotics and pain medication. He is OK with discharge. - Diagnoses Differential Diagnosis/HQI/PQRI: Concussion Without LOC, Contusion, Laceration Provider Diagnoses: Laceration of scalp Discharge - Discharge Plan Condition: Stable Disposition: HOME Prescriptions: Cephalexin CAP* [Keflex CAP*] 500 mg PO QID #28 cap MDD 4 Oxycodone TAB(NF) [Oxycodone HCl 10 MG] 10 mg PO Q6H PRN #8 tab MDD 4 PRN Reason: Pain Patient Education Materials: Laceration (ED), Staple Care (ED) Referrals: Yolanda Bai MD [Primary Care Provider] - Additional Instructions: Please follow up with your PCP [place] out in 10 days Take the Keflex as prescribed - 4 times daily for 7 days Pain medication has been prescribed to you Take only if Tylenol is not improving your symptoms
[2017-05-31] MEDS ORDERED: Cephalexin CAP* 500 MG PO ONE (02:07)
[2017-05-31 03:41] VITALS: BP 0/0
--- NOTE | 2017-05-31 08:01 | RAD ---
indication: Laceration to left parietal region after a fall COMPARISON: Most recent comparison CT of the brain dated July 25, [address] scan of the brain and c-spine was performed without intravenous contrast enhancement. Contiguous axial sections were obtained from the lung apices through the vertex. BRAIN: Again seen is encephalomalacia involving the posterior right parietal lobe as well as a small focus of the right frontal lobe. There is periventricular and subcortical white matter hypoattenuation most consistent with chronic microvascular disease. Otherwise the lópez-white matter differentiation is adequately maintained. There is fairly symmetric involutional changes of the ventricles, sulci and cisterns similar in appearance to the previous CT of the brain. There is no intracranial hemorrhage. A large cutaneous defect overlying the left frontal bone is consistent with the report of scalp laceration. There is no underlying calvarial fracture. The mastoid air cells are appropriately aerated. There is low attenuation fluid layering the dependent portion of the left maxillary sinus. The remaining paranasal sinuses are adequately aerated. C-SPINE: On the lateral view imaging there is straightening of the normal cervical lordosis. Multilevel degenerative changes include loss of intervertebral disc height and marginal osteophyte formation. These degenerative changes are most severe from C4 through C7. At these same levels there is uncovertebral hypertrophy demonstrated on the coronal plane images. There is no acute fracture or dislocation. The dens is intact. There is no hyperdense material in the cervical canal to indicate hemorrhage. The visualized musculature and soft tissues are normal. There is no gross lymphadenopathy visualized. The visualized portion of the lung apices are clear. IMPRESSION: 1. There is a large scalp laceration overlying the left frontal bone without underlying calvarial fracture or acute intracranial hemorrhage. 2. Stable areas of encephalomalacia, evidence of microvascular disease and stable involutional changes are also noted. 3. Multilevel degenerative changes of the cervical spine without acute fracture or dislocation.
== END 2017-05-31 03:25 | disposition home or self-care (01) ==
LOC: ED 23:55
DX: S01.01XA Laceration without foreign body of scalp, initial encounter (principal); W01.0XXA Fall on same level from slipping, tripping and stumbling without subsequent striking against object, initial encounter; Y92.9 Unspecified place or not applicable
CPT/HCPCS: 12004; 70450; 72125; 99283; A9270-GY

== ENCOUNTER 2017-07-09 09:34 | Day surgery (SDC) | payer MEDICARE ==
[~2017-07-09 09:34] MED LIST changes: -Sodium Citrate/Citric Acid* 15 ML UDC PO ONE
[2017-07-09] MEDS ORDERED: Buffered Lidocaine 0.9% SYRIN* 5 ML/SYR SYRINGE ONE (09:42)
[2017-07-09] MEDS ORDERED: ceFAZolin 1 GM in Dextrose (*) 2 GM/100 ML BAG IVPB ONE (09:42)
[2017-07-09] MEDS ORDERED: Naloxone* 0.4 MG/ML 1 ML VIAL IV PRN (10:47)
[2017-07-09] MEDS ORDERED: Bupivacaine 0.5% SDV PF* 10-30ML VIAL ONE (11:07)
[2017-07-09] MEDS ORDERED: Midazolam* 1 MG/ML 2 ML VIAL (2 MG) ONE (11:20)
[2017-07-09] MEDS ORDERED: fentaNYL* 50 MCG/ML 2 ML VIAL (100 MCG VIAL) ONE (11:20)
[2017-07-09] MEDS ORDERED: Lidocaine 2% PF * 5 ML VIAL ONE (11:24)
[2017-07-09] MEDS ORDERED: Propofol* 10 MG/ML 20 ML BTL IV PUSH ONE (11:24)
[2017-07-09 13:23] VITALS: BP 118/73
--- NOTE | 2017-07-21 03:48 | OP ---
OPERATIVE REPORT: DATE OF OPERATION: 07/09/17 DATE OF : 51 ATTENDING SURGEON: Dr. Imer Vann. PRE-OP DIAGNOSIS: Painful prominent hardware left wrist MTP joint. POST-OP DIAGNOSIS: Painful prominent hardware left wrist MTP joint. OPERATIVE PROCEDURE: Removal of hardware left wrist MTP joint. DESCRIPTION OF PROCEDURE: The patient was taken to the operating room where we made a longitudinal i ncision over the dorsum of the first MTP joint. The F3 plate was located over the dorsum of the join t and removed with the appropriate screw passenger coach driver as well as dissecting medially to expose the head of the 4.0 cannulated screw, which was also removed with the appropriate screw passenger coach driver. There was no andrea dence of deep infection. The wound was thoroughly irrigated and closed with nylon sutures and a comp ression dressing applied. [id number]/[facility] #: [id number]
== END 2017-07-09 13:26 | disposition home or self-care (01) ==
LOC: OR 09:34
PROVIDERS: ATTEND Orthopaedic Surgery
DX: T84.84XA Pain due to internal orthopedic prosthetic devices, implants and grafts, initial encounter (principal); Y83.1 Surgical operation with implant of artificial internal device as the cause of abnormal reaction of the patient, or of later complication, without mention of misadventure at the time of the procedure; M79.672 Pain in left foot; I25.810 Atherosclerosis of coronary artery bypass graft(s) without angina pectoris; I10 Essential (primary) hypertension; E78.2 Mixed hyperlipidemia; I69.359 Hemiplegia and hemiparesis following cerebral infarction affecting unspecified side
CPT/HCPCS: 88300; J0690; J2250; J2704; J3010

== ENCOUNTER 2017-11-14 15:22 | Emergency (ER) | payer MEDICARE ==
--- OUTSIDE RECORDS SUMMARY | 2017-11-14 15:33 | XMS REPORT ---
:1955 External Reference #:[id number] Author Organization [place] [facility] Address [address] [place] [address] Phone [phone] Care Team Providers Name Role Phone Yolanda Bai MD Primary Care Physician Unavailable Payers Type Date Identification Numbers Payment Provider Subscriber Health Maintenance Effective: Policy Number: Medicare Blue Zachary Patel ([facility] [place]) 06/21/2012 [id number] o Group Number: [id number] [address] [address] PayID: [id number] [place] [id number] Medigap Part B Expires: 05/20/2014 Policy Number: [id number] Medicare Zachary Sosa PayID: [id number] [address] [place] [address] Problems Date Description Provider Status Onset: 03/17/2013 Mixed hyperlipidemia Simin Majano M.D. Active Onset: 03/17/2013 Arteriosclerosis of autologous vein Simin Majano M.D. Active coronary artery bypass graft Onset: 03/17/2013 Benign essential hypertension Simin Majano M.D. Active Onset: 03/17/2013 Obesity Simin Majano M.D. Active Onset: 03/18/2014 History of fall Simin Majano M.D. Active Onset: 04/13/2014 Ischemic stroke Apurva Caballero M.D. Active Note: In setting of cardiac catheterization in 2008 Onset: 04/13/2014 Spastic gait Apurva Caballero M.D. Active Onset: 04/13/2014 Abnormal vision Apurva Caballero M.D. 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 three times a day Ibuprofen 03/14/ Active Tablets 800mg 60tabs 1 tab by Imer 2017 mouth Edwar, every 8 M.D. hours as needed with food Lisinopril 07/05/ Active Tablets 10mg 90tabs 1 by mouth Simin 2016 every day Alejandro Majano Left Afo Brace 10/07/ Active I69.998 Apurva For Foot Drop 2014 Alejandro Caballero Orthotic For 04/13/ Active Please I69.998 Apurva Left Foot Drop 2013 make Ada, After Stroke orthotic M.DArmand for foot drop. Patient had had falls in setting of foot drop and vision loss. Crestor 05/07/ Active Tablets 20mg 90tabs 1 by mouth Simin 2011 every day Alejandro Majano Multivitamin 00/ Active Tablets once daily Unknown 0000 Bupropion HCL / Active Tablets ER 300mg 1 po qd Unknown XL 0000 24HR Metoprolol / Active Tablets 25mg 1 po qam 1 Unknown Tartrate 0000 po qpm Vitamin D 00// Active 2 tab po Unknown 0000 daily Coq-10 / Active Capsules 10mg 2 times a Unknown 0000 week Magnesium / Active Capsules 400mg 1 by mouth Unknown 0000 every day Aspirin / Active Tablets 325mg take 1 by Unknown 0000 mouth once a day Dutasteride-Ta / Active Capsules 0.5-0.4mg 1 daily ms Juanitaulosin HCL 0000 MD Stevie Ipratropium / Active Solution 0.06% nasal [place], [place] 0000 spray once Yolanda a day MD Lizzeth Oxycodone HCL 07/09/ Hx Capsules 5mg 20caps one Imer 2017 - tablets Edwar, 09/11/ every 6 M.D. 2018 hours as needed for pain Oxycodone HCL 03/08/ Hx Tablets 5mg 30tabs 1-2 tabs M20.12 Imer 2016 - by mouth Edwar, 09/11/ every 4-6 M.D. 2018 hours as needed Topamax 04/26/ Hx Tablets 25mg 120tab 1 po qhs I69.998 Endy [place] 2014 - s for 1 wk Gagan, 11/06/ then 2 qhs M.D. 2016 for 1 wk then 3 qhs for 1 wk then 4 qhs Tizanidine HCL 09/14/ Hx Capsules 4mg 60caps take 1 Apurva 2014 - capsule by Ada, 10/25/ mouth two M.D. 2018 times daily Lisinopril 04/17/ Hx Tablets 5mg 60tabs 2 by mouth Simin 2011 - every day Melecio, 07/05/ M.D. 2016 Tizanidine HCL 04/01/ Hx Capsules 2mg 120cap 2 capsules Apurva 2011 - twice a Ada, 09/14/ day M.D. 2014 Metoprolol / Hx Unknown 2012 Wellbutrin / Hx Unknown 2012 Omeprazole / Hx Capsules 20mg 1 po qd Unknown 0000 - DR 2015 Vitamin E 00/ Hx Capsules 1 po qd Unknown 2016 Vitamin C / Hx Capsules 1000 1 po qd Unknown 2016 Fish Oil / Hx Capsules 1000mg 1 po qd Unknown - 2017 Aspirin / Hx Tablets 81mg 1 po qd Unknown 2016 Medications Administered in Office Medication Date Status Form Strength Qnty SIG Indications Ordering Provider Inj, Administered Injection Simin Regadenoson, 013 Melecio, 0.1 MG M.D. Technetium TC Administered Injection Simin 99M 013 Graves, Tetrofosmin, M.D. Per Unit Dose Up To 40 Millicuries Vital Signs Date Vital Result Comment 10/25/2017 Height 71.5 inches 5'11.50" Weight 207.25 lb Heart Rate 72 /min BP Systolic Sitting 128 mmHg BP Diastolic Sitting 84 mmHg Respiratory Rate 16 /min BMI (Body Mass Index) 28.5 kg/m2 09/12/2017 Height 71.5 inches 5'11.50" Weight 200.00 lb Heart Rate 60 /min BP Systolic 108 mmHg BP Diastolic 70 mmHg Respiratory Rate 16 /min BMI (Body Mass Index) 27.5 kg/m2 09/04/2017 Height 71.5 inches 5'11.50" Weight 216.00 lb Respiratory Rate 18 /min Pain Level 8 when hurting BMI (Body Mass Index) 29.7 kg/m2 08/07/2017 Height 71.5 inches 5'11.50" Weight 216.00 lb Heart Rate 67 /min BP Systolic Sitting 122 mmHg BP Diastolic Sitting 73 mmHg Pain Level 3 BMI (Body Mass Index) 29.7 kg/m2 07/19/2017 Height 71.5 inches 5'11.50" Weight 216.00 lb BP Systolic 130 mmHg BP Diastolic 84 mmHg Respiratory Rate 16 /min Body Temperature 96.0 F Pain Level 2 BMI (Body Mass Index) 29.7 kg/m2 06/19/2017 Height 71.5 inches 5'11.50" Weight 206.00 lb Heart Rate 61 /min Respiratory Rate 16 /min Body Temperature 97.3 F Pain Level 5 BMI (Body Mass Index) 28.3 kg/m2 05/24/2017 Height 71.5 inches 5'11.50" Weight 206.00 [...] Test Date Test Result H/L Range Note Laboratory test 07/09/2017 Surgical Pathology SEE RESULT BELOW 1 finding Lipid Profile 06/26/2017 Triglycerides 110 mg/dL 2 (Trig/Chol/HDL) Cholesterol 112 mg/dL 3 HDL Cholesterol 45.3 mg/dL 4 LDL Cholesterol 45 mg/dL 5 Basic Metabolic Panel 06/26/2017 Sodium 139 mmol/L 133-145 Potassium 4.7 mmol/L 3.5-5.0 Chloride 106 mmol/L 101-111 Co2 Carbon Dioxide 29 mmol/L 22-32 Anion Gap 4 mmol/L 2-11 Glucose 74 mg/dL 70-100 Blood Urea Nitrogen 19 mg/dL 6-24 Creatinine 1.20 mg/dL High 0.67-1.17 BUN/Creatinine Ratio 15.8 8-20 Calcium 9.3 mg/dL 8.6-10.3 Egfr Non- 61.0 >60 Egfr 78.4 >60 6 Laboratory test finding 06/26/2017 Ast (Sgot) 15 U/L 13-39 7 CBC Auto Diff 03/12/2017 White Blood Count [...] Egfr Non- 58.7 >60 Egfr 75.5 >60 8 CBC No Diff 05/27/2014 White Blood Count [...] Lipid Profile (Trig/Chol/HDL) 03/17/2014 Triglycerides 89 mg/dL 9 Cholesterol 121 mg/dL 10 HDL Cholesterol 46.2 mg/dL 11 LDL Cholesterol 57 mg/dL 12 1 SEE RESULT BELOW Name: ZACHARY SOSA: [address]: Imer Vann MD Acct: [id number] Unit: [id number] AGE: 62 Location: OR Re07/09/17 SEX: M Status: [facility] [place] SPEC: [id number] [place]: 07/09/17- [facility] DR: Imer Vann MD REQ: [id number] RECD: 07/09/17 STATUS: SOUT _ ORDERED: LEVEL 1 FINAL DIAGNOSIS Foot, left, hardware removal: Foreign body (orthopedic hardware) (Gross diagnosis). PRE-OPERATIVE DIAGNOSIS Hallux valgus (acquired) left foot pain GROSS DESCRIPTION The specimen is received fresh labeled, Hardware Left Foot, and consists of eight screws and one plate as follows: seven fully threaded yellow-green metallic Tracy headed screws ranging in size from 1.0 x 0.3 cm to 2.5 x 0.3 cm; a 3.1 x 0.5-0.3 cm collins- threaded silver metallic Davi headed screw with a central 0.1 cm lumen. A 4.4 x 1.4-0.5 x 0.2 cm metallic perforated plate with an inscription which reads "[id number] [facility] [id number] [id number]". Per established hospital medical staff protocol, no tissue is submitted. Gross only. Signed (signature on file) Taty Sheppard MD 1136 END OF REPORT * ML=Testing performed at Main Lab DEPARTMENT OF PATHOLOGY, [address] [place] [address] Hang Martinez M.D. Director [facility] # [id number] 2 Desirable: <150 Borderline High: 150-199 High: 200-499 Very High: >500 3 Desirable: <200 Borderline High: 200-239 High: >239 4 Low: <40 Desirable: 40-60 High: >60 5 Desirable: <100 Near Optimal: 100-129 Borderline High: 130-159 High: 160-189 Very High: >189 6 Because ethnic data is not always readily [...] 15-29 5 Kidney failure <15 (or dialysis) 7 FASTING on crestor 20 and lisinpiril 10 mg Any time end of 2017 or early 2018 is OK Copy Result to: ERICKAHAROLDO SOFYA ([id number]) 8 Because ethnic data is not always readily [...] 15-29 5 Kidney failure <15 (or dialysis) 9 Desirable <150 Borderline high 150-199 High 200-499 Very High >500 10 Desirable <200 Borderline high 200-239 High >239 11 Low <40 Desirable: 40-60 High: >60 12 Desirable <100 Near Optimal 100-129 Borderline high 130-159 High 160-189 Very High >189 Procedures Date CPT Code Description Status Comment 07/09/2017 Removal Implant Deep Completed Wire,Screw Nail,Wes Or Plate 07/09/2017 Removal Implant Deep Completed Wire,Screw Nail,Wes Or Plate 03/27/2017 87553 EKG Tracing & Interpretation Completed 03/12/2017 22750 Arthrodesis Great Toe IP JT Completed 03/12/2017 88935 Correction Hammertoe Completed 03/12/2017 46839 Correction Hammertoe Completed 03/17/2016 22163 EKG Tracing & Interpretation Completed 12/16/2015 Diabetic Retinal Eye Exam Completed Document: 12/16/15 - Consult Ophthalmology - Jami 02/24/2015 46314 EKG Tracing & Interpretation Completed 09/28/2014 Diabetic Retinal Eye Exam Completed Document: 09/28/14 - Consult Ophthalmology - Jami 03/18/2014 58420 EKG Tracing & Interpretation Completed 09/25/2013 Diabetic Retinal Eye Exam Completed Document: 09/25/13 - Consult Ophth-[place] 07/04/2013 Diabetic Retinal Eye Exam Completed Document: 07/04/13 - Consult Ophth-[place] Document: 07/04/13 - Consult Ophth/[place] 04/03/2013 71295 Myocardial Perfusion Imaging Completed Tomographic (Spect) Multiple Studies 04/03/2013 66144 Stress Test Completed 03/17/2013 96258 EKG Tracing & Interpretation Completed 02/26/2013 92718 ECHO Transthoracic, Completed Real-Time 2D With Doppler And Color Flow 03/12/2012 38296 EKG Tracing & Interpretation Completed 12/14/2009 Bone Mineral Density Test Completed Encounters Type Date Location Provider CPT E/M Dx Office Visit 10/25/2017 [facility] Apurva Caballero M.D. 37334 M62.838 10:00a Services Of Cooperative Manager I69.998 G24.9 Office Visit 09/12/2017 11:00a [facility] Apurva Caballero M.D. 98546 M62.838 Services Of Cooperative Manager I69.998 Office Visit 09/04/2017 10:15a [facility] Imer Vann 71141 G24.9 Linda Allen Office Visit 06/19/2017 9:45a [facility] Imer Vann 30934 M20.12 Linda Allen T84.84xD Office Visit 03/27/2017 3:00p [facility] Simin Majano M.D. 42125 I25.810 [facility] I10 E78.2 Office Visit 03/08/2017 11:00a [facility] Imer Vann 51220 M20.12 Linda Allen M20.42 Office Visit 10/25/2016 11:00a [facility] Apurva Caballero M.D. 55917 M62.838 Services Of Cooperative Manager I69.998 Office Visit 03/17/2016 2:30p [facility] Of Simin Majano M.D. 99601 I25.810 Cooperative Manager I10 E78.2 I69.398 K59.00 Office Visit 09/10/2015 10:30a [facility] Of JOSE LUIS Jeronimo 00143CLX I25.810 Cooperative Manager E78.5 I10 Office Visit 04/26/2015 11:45a [facility] Apurva Caballero M.D. 99957 I69.398 Services Of Cooperative Manager M62.838 Office Visit 02/24/2015 3:30p [facility] Of Simin Majano M.D. 31790 I25.810 Cooperative Manager E78.5 I10 Office Visit 09/14/2014 2:00p [facility] Apurva Caballero M.D. 67584 728.85 Services Of [facility] 438.7 438.89 Office Visit 06/24/2014 10:00a [facility] Services Kamini Ohara, 04366 728.85 Of Linda Allen Office Visit 04/13/2014 11:30a [facility] Apurva Caballero M.D. 29030 728.85 Services Of Cooperative Manager 438.7 438.89 Office Visit 03/18/2014 8:30a [facility] Of Simin Majano M.D. 17149 272.2 Cooperative Manager 414.02 V15.88 401.1 Office Visit 12/01/2013 1:00p [facility] Apurva Caballero M.D. 39571 438.7 Services Of Cooperative Manager 728.85 Office Visit 06/04/2013 1:00p [facility] Apurva Caballero M.D. 70296 438.7 Services Of Cooperative Manager 438.89 728.85 Office Visit 03/17/2013 11:30a [facility] Of Simin Majano M.D. 72836 272.2 Cooperative Manager 414.02 401.1 278.00 Office Visit 12/30/2012 2:15p [facility] Of Imer Vann, 70363 719.47 CAle Allen Office Visit 11/18/2012 11:15a [facility] Apurva Caballero M.D. 78842 438.20 Services Of Cooperative Manager 438.7 Office Visit 07/18/2012 11:30a [facility] Apurva Caballero M.D. 28520 438.20 Services Of Cooperative Manager 438.7 Office Visit 05/30/2012 11:00a [facility] Apurva Caballero M.D. 56435 438.89 Services Of Cooperative Manager 728.85 799.59 Office Visit 04/01/2012 2:00p [facility] Apurva Caballero M.D. 98035 348.1 Services Of Cooperative Manager 728.87 723.1 Office Visit 03/12/2012 8:00a [facility] Of Simin Majano M.D. 28324 414.02 Cooperative Manager 401.9 Office Visit 12/24/2009 9:15a [facility] Services Of Ti Mancilla, 59048 805.4 Fabian Allen Plan of Care Future Appointment(s):04/05/2018 2:00 pm - Apurva Caballero M.D. at [facility] Of [facility]10/25/2017 - Apurva Caballero M.D.M62.838 Other muscle spasmFollow up:End of February, beginning of March (30 min)Recommendations: try increasing tizanidine to 1 tablet three times a day. If it makes you too tired, I did send in a script for tablets, so that you could break the noon dose in half and take 4mg in am, 2mg at noon, 4mg at pm. Work on range of movement of your neck, along with balance and limb stretching, and ambulation.I69.998 Other sequelae following unspecified cerebrovascular soopkfdF82.9 Dystonia, unspecified
[2017-11-14] MEDS ORDERED: Lidocaine 2% W/EPI 1:100,000* 20 ML MDV INJ ONE (16:42)
--- NOTE | 2017-11-14 16:44 | UC ---
Head Injury HPI - HPI Summary HPI Summary: 62 year old male here with history of CVA and residual deficit of left leg here after he fell prior to arrival. He reports his leg gave out and fell face forward on concrete floor. He sustained laceration over right eye brow. No LOC. No change in vision. No neuro deficit afterwards. No other complaints. Tetanus UTD. - History Of Current Complaint Chief Complaint: UCHeadInjury Stated Complaint: HEAD INJURY Time Seen by Provider: 11/14/17 16:12 Onset/Duration: Sudden Onset Severity Currently: Mild Pain Intensity: 3 Character: Sharp - Risk Factors SDH Risk Factor: Negative - Allergies/Home Medications Allergies/Adverse Reactions: Allergies Allergy/AdvReac Type Severity Reaction Status Date / Time No Known Allergies Allergy Verified 11/14/17 15:40 Home Medications: Home Medications Bupropion XL* [Wellbutrin XL *] 150 mg PO DAILY 11/14/17 [History Confirmed ] PMH/Surg Hx/FS Hx/Imm Hx Previously Healthy: No Other History Of: Negative For: Anticoagulant Therapy - Surgical History Surgical History: Yes Surgery Procedure, Year, and Place: 2009-CABG; Lt [facility] - 2000; LITHOTRIPSY - 2006; HAND - TENDON REPAIRED -02/22/12. Left foot surgery 03/13/17 - Family History Known Family History: Positive: Cardiac Disease - Social History Alcohol Use: None Substance Use Type: None Smoking Status (MU): Never Smoked Tobacco - Immunization History Most Recent Influenza Vaccination: fall 2105 Most Recent Tetanus Shot: UPDATED 04/27/15 Most Recent Pneumonia Vaccination: denies Review of Systems Constitutional: Negative Skin: Negative Eyes: Negative ENT: Negative Respiratory: Negative Cardiovascular: Negative Gastrointestinal: Negative Genitourinary: Negative Motor: Negative Neurovascular: Negative Musculoskeletal: Negative Neurological: Negative Psychological: Negative All Other Systems Reviewed And Are Negative: Yes Physical Exam Triage Information Reviewed: Yes Vital Signs: Initial Vital Signs Temp 36.7 C 11/14/17 15:39 Pulse 55 11/14/17 15:39 Resp 18 11/14/17 15:39 BP 134/73 11/14/17 15:39 Pulse Ox 100 11/14/17 15:39 Vital Signs Reviewed: Yes Eye Exam: Normal ENT: Positive: Normal ENT inspection, Other - No septal hematoma Neck exam: Normal Neck: Positive: Other: - no c-spine tenderness Respiratory Exam: Normal Cardiovascular Exam: Normal Neurological: Positive: Other: - LLE 3/5 (old) otherwise nml neuro exam Psychological Exam: Normal Skin Exam: Normal Skin: Positive: Other - laceration over right eyebrow 4 cm stellate shaped deep laceration and another 0.5cm satellite laceration 1cm away from larger laceration Procedures - Laceration/Wound Repair 1 Suture Type: Nylon, Vicryl - 8 superificial laceration with Nylon 3 deep sutures with vicryl Head Injury Course/Dx - Course Course Of Treatment: Given no LOC with normal neuro exam, no need for NCHCT - Differential Dx/Diagnosis Differential Diagnosis/HQI/PQRI: Concussion Without LOC, Contusion, Other - laceration Provider Diagnoses: Head trauma and laceration Discharge - Sign-Out/Discharge Documenting (check all that apply): Discharge/Admit/Transfer - Discharge Plan Condition: Good Disposition: HOME Prescriptions: Cephalexin CAP* [Keflex CAP*] 500 mg PO TID #15 cap Patient Education Materials: Laceration (ED) Referrals: Yolanda Bai MD [Primary Care Provider] - Additional Instructions: Keep wound dry and clean for 24 hours. No rubbing. Suture removal in 7 days. Take antibiotics as prescribed. - Billing Disposition and Condition Condition: GOOD Disposition: Home Images Head: 1 - deep 4cm laceration 2 - superifical 0.5cm lacertion
--- NOTE | 2017-11-14 18:06 | UC ---
Laceration HPI - HPI Summary HPI Summary: 62 year old male here with history of CVA and residual deficit of left leg here after he fell prior to arrival. He reports his leg gave out and fell face forward on concrete floor. He sustained laceration over right eye brow. No LOC. No change in vision. No neuro deficit afterwards. No other complaints. Tetanus UTD. - History Of Current Complaint Chief Complaint: UCHeadInjury Stated Complaint: HEAD INJURY Time Seen by Provider: 11/14/17 16:12 Laceration Location: Face Onset/Duration: Sudden Onset Pain Intensity: 3 - Allergies/Home Medications Allergies/Adverse Reactions: Allergies Allergy/AdvReac Type Severity Reaction Status Date / Time No Known Allergies Allergy Verified 11/14/17 15:40 Home Medications: Home Medications Bupropion XL* [Wellbutrin XL *] 150 mg PO DAILY 11/14/17 [History Confirmed ] PMH/Surg Hx/FS Hx/Imm Hx Previously Healthy: No Other History Of: Negative For: Anticoagulant Therapy - Surgical History Surgical History: Yes Surgery Procedure, Year, and Place: 2008-[facility]; Lt [facility] - 2000; LITHOTRIPSY - 2006; HAND - TENDON REPAIRED -02/22/12. Left foot surgery 03/13/17 - Family History Known Family History: Positive: Cardiac Disease - Social History Alcohol Use: None Substance Use Type: None Smoking Status (MU): Never Smoked Tobacco - Immunization History Most Recent Influenza Vaccination: fall 2105 Most Recent Tetanus Shot: UPDATED 04/27/15 Most Recent Pneumonia Vaccination: denies Review of Systems Constitutional: Negative Skin: Negative Eyes: Negative ENT: Negative Respiratory: Negative Cardiovascular: Negative Gastrointestinal: Negative Genitourinary: Negative Motor: Negative Neurovascular: Negative Musculoskeletal: Negative Neurological: Negative Psychological: Negative All Other Systems Reviewed And Are Negative: Yes Physical Exam Triage Information Reviewed: Yes Vital Signs: Initial Vital Signs Temp 36.7 C 11/14/17 15:39 Pulse 55 11/14/17 15:39 Resp 18 11/14/17 15:39 BP 134/73 11/14/17 15:39 Pulse Ox 100 11/14/17 15:39 Vital Signs Reviewed: Yes Eye Exam: Normal Neck exam: Normal Neck: Positive: Other: - no c-spine tenderness Respiratory Exam: Normal Cardiovascular Exam: Normal Skin: Positive: Other - laceration over right eyebrow 4 cm stellate shaped deep laceration and another 0.5cm satellite laceration 1cm away from larger laceration Laceration Repair - Laceration Repair 1 Procedure Summary: The satellite lesion approximated using dermaband Description: Stellate Laceration Size After Repair: Length (cm) - 4cm, Width (mm) - 1cm, Depth (mm) - 10mm Type Injection: Local Anesthesia Used: 2.0% Lido Additive Used (in ml): Epi Cleansing Completed Via Routine Prep: Yes Irrigation With Pressure Irrigation Device: Yes Closure Method: Multilayer Suture Type: Nylon, Vicryl - 8 superificial laceration with Nylon 3 deep sutures with vicryl Laceration Course/Dx - Differential Dx - Laceration/Wound Differental Diagnoses: Laceration Provider Diagnoses: Laceration Discharge - Sign-Out/Discharge Documenting (check all that apply): Discharge/Admit/Transfer - Discharge Plan Condition: Good Disposition: HOME Prescriptions: Cephalexin CAP* [Keflex CAP*] 500 mg PO TID #15 cap Patient Education Materials: Laceration (ED) Referrals: Yolanda Bai MD [Primary Care Provider] - Additional Instructions: Keep wound dry and clean for 24 hours. No rubbing. Suture removal in 7 days. Take antibiotics as prescribed. - Billing Disposition and Condition Condition: GOOD Disposition: Home Images Head: 1 - See other HPI
[2017-11-14 18:14] VITALS: BP 133/77
[2017-11-14] MEDS ORDERED: Ibuprofen TAB* 600 MG PO ONE (18:15)
== END 2017-11-14 18:10 | disposition home or self-care (01) ==
LOC: UCEAST 15:22
DX: S01.111A Laceration without foreign body of right eyelid and periocular area, initial encounter (principal); I69.998 Other sequelae following unspecified cerebrovascular disease; W18.39XA Other fall on same level, initial encounter; Y92.9 Unspecified place or not applicable
CPT/HCPCS: 12013; 99212; A9270-GY; G0463

== ENCOUNTER 2018-08-31 13:55 | Emergency (ER) | payer MEDICARE ==
[2018-08-31 14:09] VITALS: BP 147/77
--- NOTE | 2018-08-31 14:32 | UC ---
Lower Extremity/Ankle HPI - HPI Summary HPI Summary: 63-year-old male comes in with a chief complaint of right Achilles and calf pain. Patient does have a history of right Achilles tendinitis that is being treated for through sports medicine and physical therapy. 2 days ago he tripped and fell which resulted in a hyper dorsiflexion of his right ankle. That increased the pain in the Achilles tendon on the right and also in the calf. Has been some swelling in the Achilles tendon area and also in the right calf. Pain is worse with palpation and ambulation. It's better with rest. Patient is still able to plantarflex and dorsiflex. Pt has Hx CVA with Left sided weakness. - History of Current Complaint Chief Complaint: UCLowerExtremity Stated Complaint: R LEG COMPLAINT Time Seen by Provider: 08/31/18 14:02 Pain Intensity: 8 - Allergies/Home Medications Allergies/Adverse Reactions: Allergies Allergy/AdvReac Type Severity Reaction Status Date / Time No Known Allergies Allergy Verified 11/14/17 15:40 PMH/Surg Hx/FS Hx/Imm Hx Previously Healthy: Yes - Hx Lt achilles tendon rupture Cardiovascular History: Hypertension Neurological History: CVA - lt sided weakness. Walks with a cane. Other History Of: Negative For: Anticoagulant Therapy - Surgical History Surgical History: Yes Surgery Procedure, Year, and Place: 2008-[facility]; Lt ACHILLES - 2000; LITHOTRIPSY - 2006; HAND - TENDON REPAIRED -02/22/12. Left foot surgery 03/13/17 spine fx - Family History Known Family History: Positive: Cardiac Disease - Social History Alcohol Use: None Substance Use Type: None Smoking Status (MU): Never Smoked Tobacco - Immunization History Most Recent Influenza Vaccination: fall 2105 Most Recent Tetanus Shot: UPDATED 04/27/15 Most Recent Pneumonia Vaccination: denies Review of Systems All Other Systems Reviewed And Are Negative: Yes Constitutional: Positive: Negative Skin: Positive: Negative Eyes: Positive: Negative ENT: Positive: Negative Respiratory: Positive: Negative Cardiovascular: Positive: Negative Gastrointestinal: Positive: Negative Motor: Positive: Other - see hpi Neurovascular: Positive: Other - see hpi Musculoskeletal: Positive: Other: - see hpi Neurological: Positive: Other - see hpi Psychological: Positive: Negative Is Patient Immunocompromised?: No Physical Exam Triage Information Reviewed: Yes Appearance: Well-Appearing, No Pain Distress, Well-Nourished Vital Signs: Initial Vital Signs Temp 98 F 08/31/18 14:04 Pulse 76 08/31/18 14:04 Resp 16 08/31/18 14:04 BP 147/77 08/31/18 14:04 Pulse Ox 100 08/31/18 14:04 Vital Signs Reviewed: Yes Eye Exam: Normal Eyes: Positive: Conjunctiva Clear Neck: Positive: Supple Respiratory: Positive: No respiratory distress Musculoskeletal: Positive: Other: - Left Achilles tendon is tender to palpation. There is a slight swelling approximately 2-3 cm proximal to insertion in the heel. Patient is able to plantarflex and dorsiflex. This also tender up into the calf immediately proximal to the Achilles tendon. Normal dorsalis pedis pulse normal capillary refill no sensation deficit. The medial lateral and anterior aspects of the ankle are nontender to palpation. Neurological: Positive: Alert Psychological Exam: Normal Psychological: Positive: Normal Response To Family, Age Appropriate Behavior Skin Exam: Normal Lower Extremity Course/Dx - Course Course Of Treatment: Patient Name: PEPE SOSA Medical Record#: [id number] Ordering Physician: Santiago Segura MD Acct.#: [id number] : 1955 Age: 63 Sex: M Location: [facility] Exam Date: 08/31/181425 ADM Status: REG ER Order Information: ANKLE RIGHT 3+VWS Accession Number: [id number] CPT: 64155 INDICATION: Right ankle injury. TECHNIQUE: 3 views of the right ankle were obtained. FINDINGS: There is diffuse soft tissue swelling. The bones are normal alignment. No fracture is seen. The Achilles tendon is not well visualized. IMPRESSION: SOFT TISSUE SWELLING, NO FRACTURE IS SEEN. <Electronically signed by Twan Domingo MD in OV> 08/31/18 6422 I discussed the x-ray reports with the patient and his . No acute process on the x-rays. On examination there is some swelling on the right Achilles tendon about 2 cm proximal to its insertion in the os calcis. He is able to plantarflex and dorsiflex. Based on all of this it appears to be a partial right Achilles tendon tear. Patient had an Nadeem wrap placed on his ankle and a cam boot. With his stroke and left-sided weakness we discussed that if they can help with his ambulation he should continue if it caused a fall risk he needed to modify and just use an Nadeem wrap. Plan is to follow up with sports medicine. At this time there is no evidence of any DVT the pain in his calf is contiguous with his most been painful spot in the right Achilles tendon. - Differential Dx/Diagnosis Provider Diagnosis: Partial tear of right Achilles tendon Discharge - Sign-Out/Discharge Documenting (check all that apply): Patient Departure All imaging exams completed and their final reports reviewed: Yes - Discharge Plan Condition: Stable Disposition: HOME Referrals: Yolanda Bai MD [Primary Care Provider] - Erin Benites MD [Medical Doctor] - Additional Instructions: FOLLOW UP WITH SPORTS MEDICINE. GET REEVALUATED SOONER FOR WORSENING OF YOUR CONDITION OR QUESTIONS OR CONCERNS. - Billing Disposition and Condition Condition: STABLE Disposition: Home
== END 2018-08-31 15:26 | disposition home or self-care (01) ==
LOC: UCEAST 13:55
DX: S86.011A Strain of right Achilles tendon, initial encounter (principal); M76.61 Achilles tendinitis, right leg; I10 Essential (primary) hypertension; Z86.73 Personal history of transient ischemic attack (TIA), and cerebral infarction without residual deficits; W18.40XA Slipping, tripping and stumbling without falling, unspecified, initial encounter; Y92.9 Unspecified place or not applicable
CPT/HCPCS: 99212; G0463